=== PATIENT | female | born 1975 | race Caucasian/White ===

== ENCOUNTER 2024-10-22 16:55 | Emergency (ER) | payer OTHER ==
[~2024-10-22] VITALS: Ht 172.7 cm; Wt 75.0 kg
[2024-10-22 17:00] VITALS: O2SAT 98
[2024-10-22 17:42] LABS: BASOPHILS % 0.4 % (0.0-2.0); EOSINOPHILS % 1.4 % (0.0-5.0); HEMATOCRIT. 35.8 % (36.0-48.0); HEMOGLOBIN. 12.1 g/dL (12.0-16.0); MEAN CORPUSCULAR HEMOGLOBIN 32.6 pg (28.0-32.0); MEAN CORPUSCULAR HGB CONC 33.8 g/dL (31.0-37.0); MEAN CORPUSCULAR VOLUME 96.6 fL (81.0-99.0); MEAN PLATELET VOLUME 7.1 fl (7.4-10.4); MONOCYTES % 8.5 % (2.0-8.0); NEUTROPHILS % 61.7 % (40.0-76.0); PLATELET 313 x1000/uL (130-400); RED BLOOD CELL COUNT 3.71 mill/uL (4.2-5.4); RED CELL DISTRIBUTION WIDTH 13.1 % (11.6-14.6); WHITE BLOOD COUNT 5.1 x1000/uL (4.5-11.0)
[2024-10-22] MEDS: ONDANSETRON HCL 4MG/2ML INJ IV STA (17:42)
[2024-10-22] MEDS: FAMOTIDINE 20MG/2ML VIAL IV STA (17:43)
[2024-10-22] MEDS: SODIUM CHLORIDE 0.9% 1,000 ML IV ONE (17:43)
[2024-10-22 17:49] LABS: CHLORIDE 107 mEq/L (98-107); POTASSIUM 3.9 mEq/L (3.5-5.1); SODIUM 143 mEq/L (136-145)
[2024-10-22 17:50] LABS: CALCIUM 8.9 mg/dL (8.7-10.4); CARBON DIOXIDE 24 mEq/L (21-32)
[2024-10-22 17:51] LABS: INR 0.9; PROTHROMBIN TIME 10.1 sec (9.6-11.0)
[2024-10-22 17:55] LABS: CREATININE 0.7 mg/dL (0.6-1.0); GLUCOSE 73 mg/dL (70-105); UREA NITROGEN BLOOD 17 mg/dL (9-23)
[2024-10-22 17:56] LABS: ETHANOL BLOOD 158 mg/dL (<10)
[2024-10-22 17:57] LABS: ALANINE AMINOTRANSFERASE 13 IU/L (10-49); ALBUMIN 4.2 g/dL (3.2-4.8); ASPARTATE AMINOTRANSFERASE 28 IU/L (<34); BILIRUBIN DIRECT 0.2 mg/dL (<=3.0); BILIRUBIN TOTAL 0.7 mg/dL (0.1-1.0)
[2024-10-22 17:58] LABS: PROTEIN TOTAL 7.1 g/dL (6.0-8.3)
[2024-10-22 18:13] LABS: TROPONIN I HIGH SENSITIVITY < 4 ng/L (3.0-34)
[2024-10-22] MEDS ORDERED: P50 MT (21:05)
[2024-10-22] MEDS ORDERED: TOPUD MT (21:05)
[2024-10-22] MEDS ORDERED: VALA10002 MT (21:05)
[2024-10-22] MEDS ORDERED: GABA-1180 MT (21:05)
[2024-10-22] MEDS ORDERED: AZIT500T8 MT (21:41)
[2024-10-22 22:10] VITALS: TEMP 37.4; O2SAT 98
[2024-10-22] MEDS: GABAPENTIN 300MG CAPSULE PO ONE (22:17)
[2024-10-22 22:18] VITALS: BP 98/75; PULSE 76; RESP 14
[2024-10-22] MEDS: KETOROLAC 30MG/ML VIAL IV NR (22:18)
== END 2024-10-22 22:15 | disposition home or self-care (01) ==
LOC: ER 16:55
DX: B02.9 Zoster without complications (principal); R11.2 Nausea with vomiting, unspecified; R10.9 Unspecified abdominal pain; Z79.899 Other long term (current) drug therapy; Z98.890 Other specified postprocedural states
CPT/HCPCS: 80076; 80048; 80320; 83690; 85025; 85610; 84484; 36415; 74176; 93005; 96361; 96374; 96375; 99285; J3490; J1885; J2405; J7030; Z7610 ×6; A4606; G0480